=== PATIENT | male | born 1980 | race Caucasian/White ===

== ENCOUNTER → 2023-01-09 | Outpatient (CLI) | payer OTHER ==
--- NOTE | 2023-01-09 11:39 | XR ---
EXAMINATION TYPE: XR lumbar spine 3V DATE OF EXAM: 01/09/2023 Comparison: None Clinical History: 42-year-old male S39.012A STRAIN OF MUSCLE, LOWER BACK Findings: 5 lumbar type vertebral bodies. Facet arthropathy lower lumbar spine with moderate degenerative disc disease at L5-S1. Mild degenerative disc disease L4-L5. Vertebral body heights are preserved and alig nment is maintained. 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 No verteb ral compression collapse or malalignment.
== END | disposition home or self-care (01) ==
LOC: RADXRMAIN 10:56
PROVIDERS: ATTEND Emergency Medicine
DX: S39.012A Strain of muscle, fascia and tendon of lower back, initial encounter (principal); M47.816 Spondylosis without myelopathy or radiculopathy, lumbar region; M51.36 Other intervertebral disc degeneration, lumbar region
CPT/HCPCS: 72100